=== PATIENT | female | born 1945 | race Caucasian/White ===

== ENCOUNTER 2016-10-25 13:33 | Emergency (ER) | payer MEDICARE ==
[~2016-10-25] VITALS: Ht 165.1 cm; Wt 67.3 kg
[~2016-10-25 13:33] MED LIST: ESTR2TAB2 PO; GUAI118L13 PO; KRIL1CAP23 PO; LISI-571 PO; MAGN500C4 PO; METO25TA99 PO; MULT1CAP33 PO; PHEN-499 PO; PRD5T PO
[2016-10-25 13:38] VITALS: BP 128/63; PULSE 91; RESP 14; O2SAT 100
--- NOTE | 2016-10-25 13:51 | ED.REPORT ---
HPI-Head Prob / Injury Date of Service Oct 25, 2016 ED Provider: Dr. Will Pt is a 71 year old female with a hx of HTN presenting to the ED complaining of facial abrasions after falling just prior to arrival. She reports that she was running on the treadmill and then reached down to slat pickler her phone and tripped and fell onto her face. She denies any LOC, neck pain, nausea, vomiting, or any other symptoms at this time. Nursing Notes Stated Complaint: HEAD INJURY Chief Complaint: Head, Face, Neck Trauma Nursing Notes Reviewed: Yes Allergies: Coded Allergies: Penicillins (Verified Allergy, Unknown, 05/09/15) Sulfa (Sulfonamide Antibiotics) (Verified Allergy, Unknown, 05/09/15) Scheduled Estradiol (Estradiol) 2 Mg Tablet 2 MG PO DAILY Krill/Om-3/Dha/Epa/Phospho/Ast (Megared [place]-3 Krill Oil Sfgl) 1,000-230MG Capsule 1 EACH PO DAILY Lisinopril (Lisinopril) 5 Mg Tablet 5 MG PO DAILY Magnesium Oxide (Magnesium) 500 Mg Capsule 500 MG PO DAILY Metoprolol Succinate ER (Metoprolol Succinate ER) 25 Mg Tab.er.24h 25 MG PO DAILY Multivitamin (Multivitamins) 1 Each Capsule 1 EACH PO DAILY Phentermine (Phentermine) 30 Mg Capsule 30 MG PO DAILY Prednisone (PredniSONE) 5 Mg Tab 5 MG PO DAILY Scheduled PRN Guaifenesin/Codeine Phosphate (Cheratussin AC Syrup) 118 Ml Liquid 5 ML PO QID PRN PRN For Cough General Time Seen by Provider: 13:52 Chief Complaint Abrasion Hx Obtained From: Patient Arrived By: Walk-in Onset Occurred: Just prior to arrival Symptom Duration: Since onset Quality: Painful Severity: Current: Mild Severity: Maximum: Moderate Recent Healthcare: No recent doctor visit, No recent hospitalization Similar Sx Previous: No Past Medical History Past Medical History Hypertension Lung cancer Ischemic Colitis requiring bowel resection Thrush Stable thoracic aortic aneurysm Dyslipidemia Keratosis Kidney disease 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 Physical Exam Initial Vital Signs Vital Signs (First) Date Time Temp Pulse Resp B/P Pulse Ox O2 Delivery O2 Flow Rate FiO2 10/25/16 13:38 36.5 91 14 128/63 100 10/25/16 16:28 Room Air Initial VS: Reviewed Respiratory: Breath sounds normal, Clear to auscultation, No respiratory distress Cardiovascular: Regular rate & rhythm, Heart sounds normal, Intact distal pulses Abdomen / GI: Soft, Non-tender, No guarding, No rebound, No distention Extremities: Vascular intact, Neuro intact, No swelling, No tenderness Psychiatric: Mood/affect normal, Behavior normal, Normal thought content General/Constitutional: Awake, Alert, No acute distress, Well appearing Head / Eyes: Atraumatic, Normocephalic, PERRL, EOMI ENT: Atraumatic, Airway patent, Mucous membranes moist Neck: Atraumatic, Supple, No meningismus, Full range of motion Neurologic: Oriented X3, Speech NL, No motor deficits, No sensory deficits, CN II - XII intact, Cerebellar NL Skin: Warm, Dry Laceration on nasal bridge and across left cheek Interpretation & Diagnostics CT Head Interpretation IMPRESSION: 1. No acute intracranial abnormality. 2. Age related cerebral atrophy and chronic deep white matter ischemic changes. Dictated by: Javi Villalta M.D. on 10/25/2016 at 14:28 Study: Head CT no contrast Interpretation / Wet Read by: Interpret - Radiologist Procedures Laceration Management Procedure Performed by: Allied health pract (David Venegas, [facility]) Location of Wound: Bridge of nose Wound Length: 3 cm Local Anesthesia: Bupivacaine 0.5%, 2cc, 27g needle Wound Preparation: Shurclens, Normal saline Debridement: Minimal Irrigation: 250 cc Foreign Body Explore / Removal: Explored for foreign body Repair Skin: Prolene (6-0) # Sutures - Skin: 7 Closure Layers: 1 Suture Technique: Simple (6), Mattress (1) Post-Procedure / Complications: Antibiotic oint applied, Dressing applied, No complications, Condition improved, Tolerated procedure well, Patient stable Location of Wound: Left cheek Wound Length: 2 cm Local Anesthesia: Bupivacaine 0.5%, 3cc Wound Preparation: Shurclens, Normal saline Irrigation: 250 cc Foreign Body Explore / Removal: Explored for foreign body, Removed multiple Repair Skin: Prolene (6-0) # Sutures - Skin: 5 Closure Layers: 1 Suture Technique: Simple Post-Procedure / Complications: Antibiotic oint applied, Dressing applied, No complications, Condition improved, Tolerated procedure well, Patient stable Re-Eval/Medical Decision Re-Evaluation/Progress : Time of Eval: 15:00 Patient Status: Condition improved Re-Evaluation/Progress Note: Discussed plan for discharge. Pt understands and agrees. Counseled Regarding: Diagnosis, Lab results, Need for follow-up, When/why to return to ED Discharge & Departure Primary Impression: Facial laceration Encounter type: initial encounter Qualified Code: S01.81XA - Laceration without foreign body of other part of head, initial encounter Disposition: Home All VS Reviewed: Yes Condition: Improved Patient Instructions: Facial Laceration (ED) Additional Instructions: Your head CT did not show any sign of trauma. You received sutures for your facial laceration. The sutures will need to be removed in days so return to the ER to have that done. Apply antibiotic ointment to the site and cover it with a bandage. Return to the ER if you develop any new or worsening symptoms such as fever, nausea, dizziness, passing out, or severe headache. Referrals: Mic Dickinson DO (PCP) Scribe Attestation Portions of this note were transcribed by Lashon Moya. I, Dr. Will personally performed the history, physical exam and medical decision-making; I reviewed and confirmed the accuracy of the information in the transcribed note. Signed by: Kristie Handley, 10/25/16 at 1543. copies to: Mic Dickinson Timothy S DO Oct 25, 2016 13:51 LASHON MOYA Oct 25, 2016 13:56 David Venegas PA-C Oct 25, 2016 16:08
--- NOTE | 2016-10-25 14:32 | DRSVH ---
PROCEDURE: CT BRAIN WITHOUT CONTRAST ([id number]) INDICATIONS: fall w LOC TECHNIQUE: Noncontrast 4.5 mm thick angled axial sections acquired from the foramen magnum to the vertex, with c oronal reformats. COMPARISON: MRI brain 07/03/2014 FINDINGS: Image quality: Excellent. CSF spaces: Basal cisterns are patent. No extra-axial fluid collections. The ventricles are symmet ashley in size and shape. Brain: No intracranial bleeds or masses. There is cerebral volume loss for age, with resultant vent ricular and sulcal prominence. There are periventricular and deep white matter chronic small vessel ischemic changes. There is intracranial internal carotid artery atherosclerosis. Skull and face: Calvarium and visualized facial bones appear intact, without suspicious lesions. Sinuses: Visualized sinuses and mastoids are clear. IMPRESSION: 1. No acute intracranial abnormality. 2. Age related cerebral atrophy and chronic deep white matter ischemic changes. Dictated by: Javi Villalta M.D. on 10/25/2016 at 14:28 Approved by: Javi Villalta M.D. on 10/25/2016 at 14:30
[2016-10-25] MEDS ORDERED: Bupivacaine 0.5%/EPI 50 mL Inj INFILTRATE ONE (14:45)
[2016-10-25] MEDS ORDERED: Bupivacaine-MPF 0.5% 30 mL Inj ONE (14:45)
[2016-10-25 16:28] VITALS: BP 137/46; PULSE 95; RESP 20; O2SAT 99
== END 2016-10-25 16:30 | disposition home or self-care (01) ==
LOC: SED 13:33
DX: S01.81XA Laceration without foreign body of other part of head, initial encounter (principal); W17.89XA Other fall from one level to another, initial encounter; Y93.A1 Activity, exercise machines primarily for cardiorespiratory conditioning; Y92.89 Other specified places as the place of occurrence of the external cause; Y99.8 Other external cause status; I10 Essential (primary) hypertension; E78.5 Hyperlipidemia, unspecified; Z87.891 Personal history of nicotine dependence; Z88.0 Allergy status to penicillin; Z88.2 Allergy status to sulfonamides